=== PATIENT | male | born 1965 | race Caucasian/White ===

== ENCOUNTER 2016-07-25 11:31 | Inpatient (IN) | payer OTHER, SELFPAY ==
--- NOTE | ~2016-07-25 | CO ---
Unit #: [id number] #: [id number] Patient: SHANIQUE JUAREZ [id number] [address] [place], [place] [address] [id number] I MR#: [id number] NAME: SHANIQUE JUAREZ ROOM: 558 Age: 51 Sex: M Admission Date: 07/25/2016 : 1965 Attending Physician: Sahil Ennis M.D. Consultation Date: 07/27/2016 CONSULTATION REPORT REASON FOR CONSULTATION COPD. HISTORY OF PRESENT ILLNESS This is a 51-year-old gentleman who smokes a pack and half cigarettes a day who presents with chest discomfort and left arm discomfort. Cardiac catheterization revealed significant coronary artery disease and apparently, he has undergone stent placement. A CT scan showed severe emphysema. We were asked to evaluate the patient. He has occasional cough, rare sputum production. He does not notice any wheezing, but states that,"doctors tell me I do." PAST MEDICAL HISTORY Remarkable for tobacco use. He does have a history of COPD, this recent diagnosis of coronary artery disease. Denies much in the way of other medical problems except for remote spontaneous pneumothorax, status post chest tube on the right. MEDICATIONS He has an albuterol inhaler which he basically does not take; otherwise, no medicines preadmission. ALLERGIES No known medical allergies. 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 He is able to work without limitation from shortness of breath. FAMILY HISTORY Denies any history of emphysema or COPD. REVIEW OF SYSTEMS No fever, chills, weight loss, headache, dizziness, chest pain as described above. Respiratory ROS, as above. No abdominal pain, nausea, vomiting, hematuria, dysuria, leg pain, swelling. Further review of systems, negative. PHYSICAL EXAMINATION GENERAL: Reveals the patient who is in no acute distress. VITAL SIGNS: Afebrile, pulse is 73, respiratory rate is 18, blood pressure is 106/57, height 5 foot, and weight 616 pounds. HEENT: Pupils are equal, round, and reactive to light. Sclerae anicteric. Head, atraumatic. Unit #: [id number] #: [id number] Patient: SHANIQUE JUAREZ NECK: Supple. No supraclavicular or cervical adenopathy appreciated. CHEST: Rare wheeze, but it was a faint. No consolidation. No crackles. CARDIAC: Examination reveals regular rate and rhythm. No pathologic murmur, rub or gallop. ABDOMEN: Soft and nontender. No hepatomegaly or rebound. EXTREMITIES: Reveal no clubbing, cyanosis or edema. No calf tenderness. SKIN: Warm and dry without rash or diaphoresis. NEUROLOGIC: Grossly intact. No focal motor or sensory deficits. LABORATORY EXAMINATION EF, technically difficult, but left ventricular function severely reduced possible 20%. He did have coronary artery disease. CT scan revealed severe bullous emphysema. He had some nodular densities bilaterally. Radiologist is asking for repeat chest x-ray/CT scan. EKG; T-wave changes laterally. IMPRESSION 1. Emphysema. 2. Abnormal CAT scan likely scar, cannot rule out early tumor. 3. Tobacco. 4. Coronary artery disease. 5. History of spontaneous pneumothorax, status post chest tube on the right in the remote past. PLAN Certainly, no smoking is a great benefit and this was discussed with the patient. CT scan in six months to follow up his radiographic abnormalities. We will start Symbicort two puffs twice a day with office followup and consider changing him to LABA/LAMA. We will also check an alpha-1 antitrypsin level in the office. From a pulmonary point of view, he could be discharged with office followup. Thank you very much for allowing me to participate in the care of Mr. Juarez. Dictated by... Mateusz Pickett M.D. BRUCE/lyle TD: 07/28/2016 05:36 JOB #: [id number] CC: Levon Montano M.D. CONSULTATION REPORT Page 1 of 1 X Mateusz Pickett MD CONSULTATION REPORT
--- NOTE | ~2016-07-25 | EKG ---
PATIENT: SHANIQUE RODRIGUEZ UNIT #: [id number] Ventricular Rate: 68 BPM Atrial Rate: 68 BPM P-R Interval: 150 ms QRS Duration: 92 ms Q-T Interval: 420 ms QTC Calculation(Bezet): 446 ms P Westbrook: 73 degrees Calculated R Westbrook: 88 degrees Calculated T Westbrook: 92 degrees Diagnosis Line: Normal sinus rhythm Diagnosis Line: T wave abnormality, consider anterolateral Diagnosis Line: ischemia Diagnosis Line: Abnormal ECG Diagnosis Line: When compared with ECG of 26-JUL-2016 05:40, Diagnosis Line: (unconfirmed) Diagnosis Line: No significant change was found Diagnosis Line: Confirmed by CORINNA KATZ MD ([id number]) on 07/27/2016 Diagnosis Line: 10:28:06 PM INTERPRETING MD: STERLING ORTIZ
--- NOTE | ~2016-07-25 | EKG ---
PATIENT: SHANIQUE RODRIGUEZ UNIT #: [id number] Ventricular Rate: 76 BPM Atrial Rate: 76 BPM P-R Interval: 144 ms QRS Duration: 94 ms Q-T Interval: 392 ms QTC Calculation(Bezet): 441 ms P Fountain: 81 degrees Calculated R Fountain: 95 degrees Calculated T Fountain: 93 degrees Diagnosis Line: Normal sinus rhythm Diagnosis Line: Rightward axis Diagnosis Line: T wave abnormality, consider anterolateral Diagnosis Line: ischemia Diagnosis Line: Abnormal ECG Diagnosis Line: When compared with ECG of 25-JUL-2016 11:03, Diagnosis Line: (unconfirmed) Diagnosis Line: Nonspecific T wave abnormality, improved in Diagnosis Line: Inferior leads Diagnosis Line: T wave inversion now evident in Anterior leads Diagnosis Line: Confirmed by CORINNA KATZ MD ([id number]) on 07/27/2016 Diagnosis Line: 10:23:46 PM INTERPRETING MD: STERLING ORTIZ
--- NOTE | ~2016-07-25 | EKG ---
PATIENT: SHANIQUE RODRIGUEZ UNIT #: [id number] Ventricular Rate: 68 BPM Atrial Rate: 68 BPM P-R Interval: 134 ms QRS Duration: 100 ms Q-T Interval: 402 ms QTC Calculation(Bezet): 427 ms P Landis: 82 degrees Calculated R Landis: 87 degrees Calculated T Landis: 100 degrees Diagnosis Line: Sinus rhythm with Premature atrial complexes Diagnosis Line: T wave abnormality, consider anterolateral Diagnosis Line: ischemia Diagnosis Line: Abnormal ECG Diagnosis Line: When compared with ECG of 26-JUL-2016 16:31, Diagnosis Line: (unconfirmed) Diagnosis Line: Premature atrial complexes are now Present Diagnosis Line: Confirmed by CORINNA KATZ MD ([id number]) on 07/27/2016 Diagnosis Line: 10:31:43 PM INTERPRETING MD: STERLING ORTIZ
--- NOTE | ~2016-07-25 | CT57 ---
[facility] A Service of [facility] RADIOLOGY TEXT RESULTS PATIENT: SHANIQUE RODRIGUEZ LOCATION: [facility] 558-01 : 61 UNIT #: [id number] AGE: [address]: Sahil Ennis MD SEX: M ORDER DR: [id number] [facility] [address] [place], [place] [address] [id number] I MR#: [id number] #: [id number] NAME: SHANIQUE RODRIGUEZ : 1965 SEX: M STUDY DATE/TIME: 07/26/2016 19:19 UNIT: [facility] ROOM: [facility] STUDY DESCRIPTION: CT Chest Wo Cont Attending Physician: Sahil Ennis M.D. Ordering Physician: Physician Non-Staff Primary Care Physician: No Primary Care Physician MEDICAL IMAGING REPORT This report is preliminary unless electronic signature is present EXAM CT chest without IV contrast. COMPARISON Chest radiographs dated July 25, 2016 and June 22, 2014 INDICATIONS 51-year-old male inpatient with chest pain for 2 weeks. History of COPD and emphysema. TECHNIQUE This CT exam was performed with one or more of the following radiation dose reduction techniques: Automatic exposure control, adjustment of mA and/or kV according to patient size, and iterative reconstruction. FINDINGS Axial CT imaging of the chest was performed without IV contrast. Lack of IV contrast limits evaluation of adenopathy, and vasculature. Multilevel Schmorl node formation of the lower thoracic spine. No evidence of acute fracture or suspicious osseous lesion. Airways are widely patent. No pneumothorax, pleural effusion or consolidative pneumonia. Excreted contrast is seen within the renal calyces and proximal ureters, likely due to contrast administration at outside institution. There appears to be vicarious excretion of contrast within the gallbladder lumen. There is a tiny splenule posterior to the spleen. There is calcification of the abdominal aorta with calcification also seen in the proximal superior mesenteric artery. There are tubular hyperdensities at the level of the left anterior descending coronary artery and the right coronary artery which may reflect stents. At the very least the patient has coronary artery disease. There is normal caliber of the thoracic aorta and pulmonary artery. There is normal heart size, without pericardial effusion. No definite adenopathy on this noncontrast exam. There is severe bullous emphysema throughout the lungs with some pleural STS. [facility] A Service of [facility] RADIOLOGY TEXT RESULTS PATIENT: SHANIQUE RODRIGUEZ LOCATION: [facility] 558-01 : 61 UNIT #: [id number] AGE: [address]: Sahil Ennis MD SEX: M ORDER DR: parenchymal scarring in the left pulmonary apex. Some of this has somewhat of a nodular characteristic, measuring up to approximately 1.2 cm. IMPRESSION 1. Severe bullous emphysema of the lungs. In the left pulmonary apex there is what is favored to represent an area of pleural parenchymal scarring but this does have somewhat of a nodular characteristic measuring up to 1.2 cm. Comparison with any prior outside chest CT would be helpful to document stability. If this cannot be documented to be stable then CT chest without IV contrast would be recommended in 3 to 6 months to document stability. 2. Excreted contrast seen within the renal calyces with findings suggestive of vicarious excretion of contrast within the gallbladder lumen. This most likely reflects recent contrast administration at an outside institution. 3. Dense tubular opacities seen in the region of the right coronary artery and left anterior descending coronary artery which are favored to represent coronary artery stents. 4. No evidence of pneumothorax, pleural effusion or acute airspace disease. Dictated by... Mazin Lassiter M.D. THIS IS AN ELECTRONICALLY VERIFIED REPORT Mazin Lassiter M.D. at 07/29/2016 4:25 PM WALTER/lance TD: 07/27/2016 08:02 JOB #: [id number] MEDICAL IMAGING REPORT Page 1 of 1 COPY
--- NOTE | ~2016-07-25 | CR72 ---
[facility] A Service of [facility] RADIOLOGY TEXT RESULTS PATIENT: SHANIQUE RODRIGUEZ LOCATION: [facility] 558-01 : 61 UNIT #: [id number] AGE: [address]: Sahil Ennis MD SEX: M ORDER DR: [id number] [facility] [address] [place], [place] [address] [id number] I MR#: [id number] Acc #: [id number] NAME: SHANIQUE RODRIGUEZ : 1965 SEX: M STUDY DATE/TIME: 07/25/2016 11:42 UNIT: [facility] ROOM: [facility] STUDY DESCRIPTION: CR Chest Single View Portable Attending Physician: Sahil Ennis M.D. Ordering Physician: Buster Sim M.D. Primary Care Physician: Primary Care Physician No MEDICAL IMAGING REPORT This report is preliminary unless electronic signature is present EXAM Portable chest HISTORY Cough and upper chest pain for the past 2 weeks. TECHNIQUE Single view of the chest was obtained. FINDINGS The heart and mediastinum have a normal configuration. The lungs are emphysematous. There is an asymmetric left apical density that radiates down toward the left hilum. I suspect that this is all fibrotic in nature. The possibility of a left apical mass cannot be completely excluded. I would recommend correlation with any previous chest imaging studies if available. If none are available, consider chest CT for further evaluation. Vascular markings are normal and no pleural fluid is seen. IMPRESSION Severe emphysema. Probable apical fibrosis on the left with stranding down toward the left hilum. Left apical mass is not completely excluded however. Correlate if there are any previous chest imaging studies available for comparison and if none are available, consider CT for further evaluation. Dictated by... Yuriy Friend M.D. THIS IS AN ELECTRONICALLY VERIFIED REPORT Yuriy Friend M.D. at 07/27/2016 9:45 AM Sandra [facility] A Service [facility] RADIOLOGY TEXT RESULTS PATIENT: SHANIQUE RODRIGUEZ LOCATION: [facility] 558-01 : 61 UNIT #: [id number] AGE: [address]: Sahil Ennis MD SEX: M ORDER DR: TD: 07/25/2016 22:59 JOB #: [id number] MEDICAL IMAGING REPORT Page 1 of 1 COPY
--- NOTE | ~2016-07-25 | HP ---
Unit #: [id number] #: [id number] Patient: SHANIQUE RODRIGUEZ [id number] [address] [address] [id number] I MR#: [id number] NAME: SHANIQUE RODRIGUEZ ROOM: 558 Age: 51 Sex: M Admission Date: 07/25/2016 : 1965 Attending Physician: Sahil Ennis M.D. Primary Care Physician: No Primary Care Physician HISTORY AND PHYSICAL HISTORY OF PRESENT ILLNESS This is a 51-year-old white male who presented to the emergency room with a complaint of left sternal chest pressure that he felt as if someone was pushing hard on his chest. He reported left arm weakness and left shoulder pain. His symptoms started about 10 a.m. this morning and resolved by the time he reached the emergency room. He had a similar episode last week but had diaphoresis that accompanied chest pain. He states he is always short of breath. In the emergency room, his troponin was negative. Electrocardiogram showed no acute ischemic changes. He denies a history of hypertension, hyperlipidemia, or diabetes. His risk factors include nicotine abuse and family history of premature coronary artery disease. PAST MEDICAL HISTORY 1. Active smoker. 2. Chronic back pain. 3. History of pneumothorax. PAST SURGICAL HISTORY 1. Back surgery. 2. Chest tube placement. SOCIAL HISTORY The patient works as a vice chair. He smokes at least a pack of cigarettes a day. He denies illicit drug and alcohol use. FAMILY HISTORY Mother in her 50s from a myocardial infarction. Has a brother who had open heart surgery. Has another brother who had sudden cardiac and in his sleep. ALLERGIES No known drug allergies. HOME MEDICATIONS Takes no home medications. REVIEW OF SYSTEMS CONSTITUTIONAL: Negative for fever or chills. Has no weakness or fatigue. HEENT: No headache, hearing or visual changes. Difficulty with swallowing. Denies dizziness. CARDIOVASCULAR: Has chest pain as described in HPI. Denies palpitations. No paroxysmal nocturnal dyspnea or orthopnea. No syncope or near syncope. Unit #: [id number] #: [id number] Patient: SHANIQUE RODRIGUEZ RESPIRATORY: Reports persistent dyspnea. No cough or hemoptysis. GASTROINTESTINAL: No abdominal pain, nausea or vomiting. No constipation or melena. EXTREMITIES: Negative for lower extremity edema. PHYSICAL EXAMINATION VITAL SIGNS: Blood pressure 130/80, heart rate 74, temperature 97.8. GENERAL: This is a pleasant 51-year-old, small framed, white male who is in no acute respiratory distress. NEUROLOGICAL: He is awake, alert and oriented. There are no focal weakness. NECK: Trachea is midline. No thyromegaly or lymphadenopathy. No jugular venous distention. HEART: S1, S2 heart sounds are normal. No murmurs or rubs or clicks. Regular rate and rhythm. LUNGS: Scattered wheezes and diminished breath sounds both lungs. No rales. ABDOMEN: Soft, nontender, with bowel sounds present. No organomegaly. EXTREMITIES: Without leg edema. SKIN: Warm and dry. DIAGNOSTIC STUDIES LABORATORY: Hemoglobin 15.3, hematocrit 46.8, platelet count 208, white count 7.1, sodium 136, potassium 4.3, BUN 11, creatinine 0.7, glucose 112. Troponin less than 0.05. IMAGING: Chest x-ray is pending. CARDIOVASCULAR: Electrocardiogram - normal sinus rhythm with small nondiagnostic Q waves in the inferior leads. ASSESSMENT 1. Chest pain, rule out myocardial infarction. 2. Hypertension. 3. Chronic obstructive pulmonary disease. 4. Nicotine abuse. PLAN 1. The patient's chest pain is typical for ischemic heart disease. He has no acute findings on electrocardiogram. Troponin is normal. 2. Because of strong family history of premature coronary artery disease, typical angina and nicotine abuse, it has been discussed with the patient to undergo cardiac catheterization. After risks and benefits were explained, the patient agreed. 3. The patient has been started on aspirin, beta jose and nitrates. 4. 2D echocardiogram will be done to evaluate left ventricular systolic function. 5. Anticoagulate with Lovenox. 6. Calcium channel jose for angina control. 7. Encouraged the patient to quit smoking. 8. May need pulmonary consult. 9. Lipid profile will be obtained and placed on lipid lowering agent as appropriate. Unit #: [id number] #: [id number] Patient: SHANIQUE RODRIGUEZ Dictated by Ha Heaton A.P.R.N. for Angel Lane/valerie TD: 07/27/2016 06:16 JOB #: [id number] HISTORY AND PHYSICAL Page 1 of 1 X Ha Heaton APRN X HISTORY AND PHYSICAL
--- NOTE | ~2016-07-25 | DS ---
Unit #: [id number] #: [id number] Patient: SHANIQUE RODRIGUEZ [id number] [facility]. [place], [place] [address] [id number] I MR#: [id number] NAME: SHANIQUE RODRIGUEZ ROOM: 558 Age: 51 Sex: M Admission Date: 07/25/2016 : 1965 Discharge Date: 07/27/2016 Attending Physician: Sahil Ennis M.D. Primary Care Physician: Primary Care Physician No DISCHARGE SUMMARY DISCHARGE DIAGNOSES 1. Chest pain, ruled out for myocardial infarction. 2. Coronary artery disease, status post left cardiac catheterization on 07/26/2016 at [facility] per Dr. Montano, which revealed proximal LAD 90%, right coronary artery 75%, status post percutaneous coronary intervention and drug-eluting stent in the proximal left anterior descending and right coronary artery. Full report pending. Abnormal CT scan of the chest, likely from scarring, cannot rule out early tumor. Left ventricular ejection fraction 60% on left ventriculogram. 2D echocardiogram, 07/25/2016, revealed technically difficult study. Left ventricular ejection fraction questionably 20%. Moderately dilated left atrium. Moderately enlarged right atrial size. Moderately dilated right ventricle. Small pericardial effusion versus fat pad. 3. Emphysema. 4. History of spontaneous pneumothorax, status post chest tube on the right side. 5. Hypertension. 6. Hyperlipidemia, uncontrolled. 7. Family history of premature coronary artery disease. 8. Active tobacco abuse. 9. Abnormal CT of the chest. DISCHARGE MEDICATIONS Norvasc 5 mg p.o. daily, metoprolol succinate 50 mg p.o. b.i.d., aspirin 81 mg p.o. daily, Brilinta 90 mg p.o. b.i.d., nitroglycerin 0.4 mg sublingual every 5 minutes p.r.n. for chest pain, Lipitor 80 mg p.o. q.h.s., Symbicort 160 mcg inhaler use as directed. HOSPITAL COURSE This is a 51-year-old white male, new to our group, who presented to the emergency department with complaints of left sternal chest pain with left arm weakness and left shoulder pain. He was admitted to the hospital for further evaluation. Initial cardiac enzymes were negative. EKG revealed no acute findings. Risk factors for ischemic heart disease include nicotine abuse and family history of premature coronary artery disease as well as hypertension. The patient's cardiac enzymes were trended. The enzymes were indeterminate, but he ruled out for myocardial infarction. He was started on aspirin, beta-jose, and nitrate. A 2D echocardiogram was obtained to assess LV function. The study was technically difficult and the ejection fraction was difficult to calculate, but estimated at 20%. He was anticoagulated with Lovenox and started on a calcium channel jose for angina control. He was encouraged to quit smoking. Fasting lipid profile was obtained. He was ultimately recommended for cardiac Unit #: [id number] #: [id number] Patient: SHANIQUE RODRIGUEZ catheterization. The cardiac catheterization was completed on 07/26/2016. Coronary angiography revealed a 90% stenosis in the proximal LAD, which was reduced to 0% with a 3.5 x 16 mm Synergy drug-eluting stent. The right coronary artery revealed a 75% stenosis and was dilated to 0% with a 4 x 38 mm Synergy drug-eluting stent. The patient tolerated the procedure well without complications. He was transferred to telemetry overnight. Angio CK and MB were normal. Postoperative EKG revealed no acute findings. Chemistry revealed a creatinine of 0.9 with a BUN of 11. The patient was noted to have a total cholesterol of 209 with an LDL of 144 and HDL of 50. He was started on a high-dose statin. Chest x-ray revealed severe emphysema with probable apical fibrosis on the left, it was trending down toward the left hilum. The left apical mass could not be excluded. Dr. Valencia of Pulmonology was consulted. CT of the chest without IV contrast was completed and revealed severe emphysema of the lungs. There was an area favored to represent an area of pleural-parenchymal scarring, but there was somewhat of a nodular characteristic measuring up to 1.2 cm. The patient was placed on Symbicort and was recommended to follow up with Pulmonology in the office for further evaluation. His cath site is soft, without hematoma. Heart rate and blood pressure were stable. Telemetry reveals no sustained arrhythmias. He has ambulated without complaints of chest pain and is stable for discharge home. He has been provided samples for Zahroof Valves as well as a co-pay card. The importance of taking dual antiplatelet therapy for minimum of 12 months has been discussed with the patient at length and he verbalized his understanding. He is on beta-jose, calcium channel jose, statin, and p.r.n. nitroglycerin. He was instructed to follow up only with Pulmonary, but with Dr. Montano. The importance of smoking cessation and compliance have been discussed. DIAGNOSTIC STUDIES LABORATORY RESULTS: White blood cell count 9.3, hemoglobin 12.5, hematocrit 38.9, platelets 180. Sodium 139, potassium 4.1, chloride 106, CO2 of 27, BUN 11, creatinine 0.9, glucose 95, magnesium 2.1. Troponin 0.11 and 0.08. Angio CK total 93, MB 5.5, percentage MB 5.9. BNP 9. Total cholesterol 209, triglycerides 75, LDL 144, HDL 50. CARDIOVASCULAR STUDIES: EKG reveals sinus rhythm with PAC. T-wave abnormality in the anterolateral leads. QTc 427 milliseconds. PHYSICAL EXAMINATION VITAL SIGNS: Temperature 98.1, pulse 79, blood pressure 107/62. CONSTITUTIONAL: This is a 51-year-old white male, in no acute distress. SKIN: Warm and dry. NECK: Supple. No jugular vein distention. No hepatojugular reflux. Normal carotid upstrokes. No carotid bruits auscultated. HEART: S1 and S2. Regular rate and rhythm. No murmurs, rubs, or gallops. LUNGS: Bilateral breath sounds have occasional wheezes. Respirations even and nonlabored. No rales or rhonchi. ABDOMEN: Soft, nontender, and nondistended. Positive bowel sounds auscultated x4 quadrants. No ascites noted. EXTREMITIES: Bilateral lower extremities have no pretibial pitting edema. DP and PT pulses are 2+. Capillary refill less than 2 seconds. DISCHARGE INSTRUCTIONS 1. The patient will be discharged home today. 2. Follow up with primary care in 1 to 2 weeks. A list of primary care Unit #: [id number] #: [id number] Patient: SHANIQUE RODRIGUEZ providers have been given to the patient, so an appointment can be made. 3. Follow up with Dr. Montano in 6 to 8 weeks. Office to call with an appointment. 4. Follow up with Dr. Pickett/Erik in 2 to 4 weeks. 5. Prescriptions have been provided for Symbicort, aspirin, Brilinta, Lipitor, Norvasc, metoprolol, and nitroglycerin. 6. Co-pay card and samples have been provided for Brilinta. 7. The patient has been advised to refrain from tobacco abuse. 8. Cardiac rehab has been consulted. Dictated by... Aurelia Huff APRN for Angel Oconnor TD: 07/30/2016 01:23 JOB #: [id number] DISCHARGE SUMMARY Page 1 of 1 X X DISCHARGE SUMMARY
--- NOTE | ~2016-07-25 | EKG ---
PATIENT: SHANIQUE RODRIGUEZ UNIT #: [id number] Ventricular Rate: 99 BPM Atrial Rate: 99 BPM P-R Interval: 138 ms QRS Duration: 86 ms Q-T Interval: 314 ms QTC Calculation(Bezet): 402 ms P [place]: 87 degrees Calculated R [place]: 85 degrees Calculated T [place]: 55 degrees Diagnosis Line: Normal sinus rhythm Diagnosis Line: Nonspecific T wave abnormality Diagnosis Line: Otherwise normal ECG Diagnosis Line: No previous ECGs available Diagnosis Line: Confirmed by LINDSAY MATUTE MD ([id number]) on 07/26/2016 Diagnosis Line: 10:58:41 PM INTERPRETING MD: JUJU ORTIZ
[~2016-07-25 11:31] MED LIST: FLEXERIL PO; HYDROCODON-ACE1 EAC7 PO; NAPROSYN500 MG PO; PREDNISONE PO
[2016-07-25 11:51] LABS: BASOPHIL% 0.4 % (0-2.5); EOSINOPHIL# 0.2 X10e3 (0-0.7); EOSINOPHIL% 3.2 % (0.0-7.0); HEMATOCRIT 46.8 % (38.0-50.0); HEMOGLOBIN 15.3 gm/dL (13.0-16.0); LYMPHOCYTE# 1.8 X10e3 (1.0-3.5); LYMPHOCYTE% 24.8 % (17.0-45.0); MEAN CELL VOLUME 91.8 FL (83-96); MEAN CORPUSCULAR HGB CONC 32.6 g/dL (30-36); MONOCYTE# 0.6 X10e3 (0-1.0); MONOCYTE% 8.7 % (3.0-12.0); NEUTROPHIL# 4.4 X10e3 (1.5-7.1); NEUTROPHIL% 62.9 % (40-75); PLATELET COUNT 208 X10e3 (140-420); RED BLOOD COUNT 5.09 X10e (3.90-5.60); RED CELL DISTRIBUTION WIDTH 14.4 % (11.0-15.5); WHITE BLOOD COUNT 7.1 X10e3 (4.0-10.5)
[2016-07-25 11:55] LABS: DIFF IND NO
[2016-07-25 12:01] LABS: POC - CKMB 1.5 ng/mL (0.0-7.9); POC - TROPONIN <0.05 ng/mL (<=0.05)
[2016-07-25 12:08] LABS: INR 0.9; PARTIAL THROMBOPLASTIN TIME 25.4 SECONDS (23.5-31.3); PROTHROMBIN TIME (PATIENT) 9.9 SECONDS (9.6-11.5)
[2016-07-25 12:26] LABS: ALBUMIN SERUM 4.3 g/dL (3.5-5.0); BILIRUBIN, DIRECT 0.1 mg/dL (0.0-0.2); BILIRUBIN,INDIRECT 0.1 mg/dL (0.0-0.9); BILIRUBIN,TOTAL 0.2 mg/dL (0.2-2.0); BUN/CREATININE RATIO 15.71; CREATININE SERUM 0.7 mg/dL (0.6-1.4); GLOM FILT RATE Estimated 107.8 mL/min (>60); POTASSIUM 4.3 mmol/L (3.5-5.1); PROTEIN TOTAL SERUM 7.1 g/dL (6.0-8.3)
[2016-07-25 13:59] LABS: POC - TROPONIN <0.05 ng/mL (<=0.05)
[2016-07-25 22:08] LABS: %MB 2.7 % (0.0-4.0); MB 3.2 ng/ml
[2016-07-25] MEDS ORDERED: DENIES ANY HOME MEDS (22:23)
[2016-07-26 02:42] LABS: %MB 3.4 % (0.0-4.0)
[2016-07-26 06:11] LABS: BUN/CREATININE RATIO 12.5; CALCIUM SERUM 8.7 mg/dL (8.4-10.2); CREATININE SERUM 0.8 mg/dL (0.6-1.4); MAGNESIUM 2.1 mg/dL (1.6-3.0); POTASSIUM 4.3 mmol/L (3.5-5.1)
[2016-07-26 23:22] LABS: ANGIO %MB 6.6 % (0.0-4.0); ANGIO MB 5.9 ng/ml
[2016-07-27 06:28] LABS: HEMATOCRIT 38.9 % (38.0-50.0); MEAN CELL VOLUME 91.9 FL (83-96); MEAN CORPUSCULAR HEMOGLOBIN 29.6 PG (28-34); MEAN CORPUSCULAR HGB CONC 32.2 g/dL (30-36); MEAN PLATELET VOLUME 9.3 FL (6.5-11.5); RED BLOOD COUNT 4.24 X10e (3.90-5.60); RED CELL DISTRIBUTION WIDTH 14.2 % (11.0-15.5); WHITE BLOOD COUNT 9.3 X10e3 (4.0-10.5)
[2016-07-27 06:33] LABS: HEMOGLOBIN 12.5 gm/dL (13.0-16.0)
[2016-07-27 07:31] LABS: ANGIO %MB 5.9 % (0.0-4.0); ANGIO MB 5.5 ng/ml
[2016-07-27 07:37] LABS: BUN/CREATININE RATIO 12.22; CALCIUM SERUM 8.7 mg/dL (8.4-10.2); CREATININE SERUM 0.9 mg/dL (0.6-1.4); GLOM FILT RATE Estimated 97.2 mL/min (>60); POTASSIUM 4.1 mmol/L (3.5-5.1)
[2016-07-27] MEDS ORDERED: NORVASC PO (18:21)
[2016-07-27] MEDS ORDERED: TOPROL XL50 MG PO (18:21)
[2016-07-27] MEDS ORDERED: BAYER CHEWABLE81 MG PO (18:23)
[2016-07-27] MEDS ORDERED: BRILINTA90 MG PO (18:23)
[2016-07-27] MEDS ORDERED: NITROQUICK0.4 MG SL (18:25)
[2016-07-27] MEDS ORDERED: SYMBICORT INH (18:26)
[2016-07-27] MEDS ORDERED: LIPITOR80 MG PO (18:26)
== END 2016-07-27 19:26 | disposition home or self-care (01) | DRG 247 ==
LOC: CED 11:31 → CEDOF 12:20 → C5B 21:47
PROVIDERS: Emergency Medicine; Internal Medicine Cardiovascular Disease
PROC: B246YZZ Ultrasonography of Right and Left Heart using Other Contrast (ICD-10-PCS; principal; 2016-07-25)
PROC: 027135Z Dilation of Coronary Artery, Two Arteries with Two Drug-eluting Intraluminal Devices, Percutaneous Approach (ICD-10-PCS; 2016-07-26)
PROC: 4A023N7 Measurement of Cardiac Sampling and Pressure, Left Heart, Percutaneous Approach (ICD-10-PCS; 2016-07-26)
PROC: B211YZZ Fluoroscopy of Multiple Coronary Arteries using Other Contrast (ICD-10-PCS; 2016-07-26)
PROC: B215YZZ Fluoroscopy of Left Heart using Other Contrast (ICD-10-PCS; 2016-07-26)
DX: I25.10 Atherosclerotic heart disease of native coronary artery without angina pectoris (principal); I10 Essential (primary) hypertension; F17.210 Nicotine dependence, cigarettes, uncomplicated; Z71.6 Tobacco abuse counseling; E78.5 Hyperlipidemia, unspecified; J43.9 Emphysema, unspecified
CPT/HCPCS: 36415; 71010; 71250; 80048; 80061; 80076; 82550; 82553; 83735; 83880; 84484; 85025; 85027; 85347; 85610; 85730; 93005; 93306; 94640; 94760; 99291; C1725; C1769; C1874; C1887; C1894; J0153; J1644; J1650; J2250; J3010